=== PATIENT | male | born 1960 | race Caucasian/White ===

== ENCOUNTER 2019-01-29 09:30 | Day surgery (SDC) | payer OTHER | END 2019-01-29 16:40 | disposition home or self-care (01) | LOC: AMB-ENDOS 09:30 | DX: K57.32 Diverticulitis of large intestine without perforation or abscess without bleeding (principal); K64.1 Second degree hemorrhoids ==

== ENCOUNTER 2019-03-30 18:27 | Emergency (ER) | payer OTHER ==
[~2019-03-30] VITALS: Ht 180.3 cm; Wt 86.2 kg
[2019-03-30] MEDS ORDERED: COZAAR50 MG (18:49)
== END 2019-03-30 23:44 | disposition home or self-care (01) ==
LOC: ER 18:27
DX: N32.2 Vesical fistula, not elsewhere classified (principal)

== ENCOUNTER 2019-04-01 10:59 | Inpatient (IN) | payer OTHER ==
[~2019-04-01] VITALS: Ht 180.3 cm; Wt 85.7 kg
[~2019-04-01 10:59] MED LIST: COZAAR50 MG
[2019-04-09] MEDS ORDERED: LEVAQUIN500 MG PO (12:56)
== END 2019-04-16 16:35 | disposition home or self-care (01) | DRG 330 ==
LOC: SURG 04-09 09:15 → O/R 04-13 09:00 → SURG 04-13 09:00 → SURH 04-13 17:08 → SURG 04-13 18:35
PROVIDERS: ADMIT Colon & Rectal Surgery
PROC: 0WUF47Z Supplement Abdominal Wall with Autologous Tissue Substitute, Percutaneous Endoscopic Approach (ICD-10-PCS; 2019-04-13)
PROC: 0TQB4ZZ Repair Bladder, Percutaneous Endoscopic Approach (ICD-10-PCS; 2019-04-13)
PROC: 0DJD8ZZ Inspection of Lower Intestinal Tract, Via Natural or Artificial Opening Endoscopic (ICD-10-PCS; 2019-04-13)
PROC: 4A12X4Z Monitoring of Cardiac Electrical Activity, External Approach (ICD-10-PCS; 2019-04-13)
PROC: 4A033R1 Measurement of Arterial Saturation, Peripheral, Percutaneous Approach (ICD-10-PCS; 2019-04-13)
PROC: 0DTN4ZZ Resection of Sigmoid Colon, Percutaneous Endoscopic Approach (ICD-10-PCS; principal; 2019-04-13 14:30)
DX: K57.20 Diverticulitis of large intestine with perforation and abscess without bleeding (principal); N32.1 Vesicointestinal fistula; N32.2 Vesical fistula, not elsewhere classified; N99.72 Accidental puncture and laceration of a genitourinary system organ or structure during other procedure; I11.9 Hypertensive heart disease without heart failure; G47.33 Obstructive sleep apnea (adult) (pediatric); D64.89 Other specified anemias; E78.1 Pure hyperglyceridemia

== ENCOUNTER 2020-04-28 07:10 | Day surgery (SDC) | payer OTHER ==
[~2020-04-28 07:10] MED LIST changes: +LEVAQUIN500 MG PO
== END 2020-04-28 11:40 | disposition home or self-care (01) ==
LOC: AMB-ENDOS 07:10
PROVIDERS: ATTEND Colon & Rectal Surgery
DX: K62.89 Other specified diseases of anus and rectum (principal); K57.32 Diverticulitis of large intestine without perforation or abscess without bleeding; K64.1 Second degree hemorrhoids; Z20.828 Contact with and (suspected) exposure to other viral communicable diseases